=== PATIENT | male | born 1975 | race Caucasian/White ===

== ENCOUNTER 2019-12-31 08:10 | Day surgery (SDC) | payer SELFPAY ==
[~2019-12-31] VITALS: Ht 172.7 cm; Wt 76.4 kg
[2019-12-31] MEDS ORDERED: PRIL40 PO (08:33)
[2019-12-31 08:58] VITALS: BP 121/81; PULSE 60; TEMP 98
[2019-12-31 09:50] VITALS: BP 105/82; PULSE 66
--- NOTE | 2019-12-31 09:50 | NUR ---
Patient returns to [facility] per cart accompanied by Raj BARNARD and is awake and alert. Transfers from cart to recliner with stand by assist. IV fluids infusing. Awake and talking with spouse. Given sips of water to drink.
[2019-12-31 10:05] VITALS: BP 106/79; PULSE 63
--- NOTE | 2019-12-31 10:05 | NUR ---
Sipping on warm coffee and eating muffin. Spouse in room. Call light in reach.
--- NOTE | 2019-12-31 10:12 | NUR ---
Dr. Pereyra to talk with the patient and all questions answered.
[2019-12-31 10:15] VITALS: BP 114/85; PULSE 56
--- NOTE | 2019-12-31 10:15 | NUR ---
IV discontinued and dresses self.
--- NOTE | 2019-12-31 10:23 | NUR ---
Dismissed to home driven by spouse and taken to the front door per wheelchair and assisted into vehicle driven by this RN and dismissal instructions in hand.
--- NOTE | 2019-12-31 10:25 | NUR ---
Dismissal instructions given and voices understanding of these. Spuose in room.
[2019-12-31 10:36] VITALS: BP 101/71; PULSE 50
== END 2019-12-31 10:23 | disposition home or self-care (01) ==
LOC: SDCO 08:10
DX: K21.9 Gastro-esophageal reflux disease without esophagitis (principal); K44.9 Diaphragmatic hernia without obstruction or gangrene; Z88.6 Allergy status to analgesic agent
CPT/HCPCS: J2250; J3010; J7030

== ENCOUNTER 2023-08-01 09:26 | Day surgery (SDC) | payer SELFPAY ==
[~2023-08-01] VITALS: Ht 170.2 cm; Wt 77.0 kg
[~2023-08-01 09:26] MED LIST: LR 1,000 ML IV SCH; Ondansetron 4 MG/2 ML VIAL IV PRN; PRIL40 PO
[2023-08-01 09:51] VITALS: BP 126/97; PULSE 76; TEMP 97.5
[2023-08-01] MEDS ORDERED: PRIL40 PO (09:55)
[2023-08-01] MEDS ORDERED: Lidocaine PF 2% (20 MG/ML) 5 ML VIAL ONE (10:59)
[2023-08-01 11:40] VITALS: BP 111/79; PULSE 81; TEMP 96.5
[2023-08-01 11:45] VITALS: BP 119/93; PULSE 89
[2023-08-01 12:00] VITALS: BP 120/95; PULSE 80
--- NOTE | 2023-08-01 12:07 | NUR ---
1140- PATIENT RETURNS TO [facility] [place] [facility] VIA CART. PT AWAKE AND ALERT. RESPIRATIONS UNLABORED. AMBULATED TO RECLINER CHAIR WITH 2:1 SBA. PT DENIES NAUSEA OR ABDOMINAL PAIN. HOOKED UP TO MONITOR AND VS OBTAINED. CALL LIGHT AT SIDE AND PRESENT. 1145- PATIENT TOLERATING COFFEE AND MUFFIN WITHOUT NAUSEA. 1150- DR. FONSECA IN ROOM SPEAKING WITH PATIENT. 1158- D/C INSTRUCTIONS REVIEWED WITH PATIENT. PT VERBALIZED UNDERSTANDING AND A COPY OF INSTRUCTIONS PROVIDED IN D/C FOLDER. 1204- PATIENT DRESSES SELF. 1207- PATIENT DISCHARGED FROM UNIT VIA W/C TO A PERSONAL VEHICLE. PT LEFT HOSPITAL IN STABLE CONDITION.
== END 2023-08-01 12:07 | disposition home or self-care (01) ==
LOC: SDCO 09:26
DX: Z12.11 Encounter for screening for malignant neoplasm of colon (principal); D12.5 Benign neoplasm of sigmoid colon; K21.9 Gastro-esophageal reflux disease without esophagitis; Z79.899 Other long term (current) drug therapy
CPT/HCPCS: J2704; J7120